=== PATIENT | male | born 1980 | race Caucasian/White ===

== ENCOUNTER 2017-02-07 15:44 | Emergency (ER) | payer MEDICAID ==
[2017-02-07 16:27] VITALS: BP 147/91; PULSE 71; RESP 20; TEMP 98.7; O2SAT 99
--- NOTE | 2017-02-07 17:07 | C.PDOC ---
History Of Present Illness 36-year-old male, presents to the emergency department with complaints of severe right flank pain in right-lower back, that started spontaneously a few hours ago. Pain is non-traumatic and constant in nature. Patient states he is unable to walk due to right leg pain that is worse w/ movement. pain is similar to an episode that patient had last year in August, after a fall four days prior to onset. Five years ago while patient was in [place], he states that he suffered sudden onset of transient paralysis from his waist downwards that lasted for approximately 3 months. Patient states he was under a lot of stress during the time and was unable to figure out what caused his episode of paralysis. A doctor informed patient that he "needs to pray to God," which patient did and later found recovery from his symptoms. Otherwise, patient denies head injury, LOC, urinary/bowel incontinence. Time Seen by Provider: 02/07/17 16:40 Chief Complaint (Nursing): Male Genitourinary History Per: Patient History/Exam Limitations: no limitations Onset/Duration Of Symptoms: Days, Waxing/Waning Severity: Moderate Past Medical History Reviewed: Historical Data, Nursing Documentation, Vital Signs Vital Signs: Last Vital Signs Temp 98.7 F 02/07/17 16:22 Pulse 71 02/07/17 16:22 Resp 20 02/07/17 16:22 BP 147/91 H 02/07/17 16:22 Pulse Ox 99 02/07/17 17:43 Surgical History: Appendectomy Family History: States: No Known Family Hx - Social History Hx Alcohol Use: No Hx Substance Use: No - Immunization History Hx Tetanus Toxoid Vaccination: No Hx Influenza Vaccination: No Hx Pneumococcal Vaccination: No Review Of Systems Constitutional: Negative for: Fever, Chills Cardiovascular: Negative for: Chest Pain, Palpitations Gastrointestinal: Negative for: Vomiting Musculoskeletal: Positive for: Back Pain, Leg Pain Skin: Negative for: Rash Neurological: Negative for: Weakness, Numbness Physical Exam - Physical Exam Appears: Non-toxic, No Acute Distress (moderate. moaning, writhing in pain) Skin: Warm, Dry, No Rash Eye(s): bilateral: Normal Inspection Neck: Normal ROM Chest: Symmetrical Cardiovascular: Rhythm Regular Respiratory: Normal Breath Sounds, No Accessory Muscle Use Extremity: Normal ROM, No Tenderness, Capillary Refill (<2 seconds), No Deformity, No Swelling ED Course And Treatment - Laboratory Results Result Diagrams: 02/07/17 17:06 02/07/17 17:06 Lab Interpretation: Normal O2 Sat by Pulse Oximetry: 99 Pulse Ox Interpretation: Normal - CT Scan/US MRI lumbar spine Other Rad Studies (CT/US): Read By Radiologist, Radiology Report Reviewed CT/US Interpretation: Accession No. : [id number]. Patient Name / ID : NICCI MARTÍNEZ / [id number]. Exam Date : 02/07/2017 17:45:09 ( Approved ). Study Comment : Sex / Age : M / 36Y. Creator : Nacho Crawley. Dictator : Nacho Crawley. Pouncer Machine : Associate Director Data & Analytics : Nacho Crawley. Approver2 : Report Date : 02/07/2017 18:18:17. My Comment : . PROCEDURE: MR LUMBAR SPINE WITHOUT CONTRAST. HISTORY: right sided back pain with radiation to leg. COMPARISON: Comparison is made to the previous CT study dated 09/05/2016. TECHNIQUE: Multiecho multiplanar sequences were performed through the lumbar spine without the use of intravenous contrast. FINDINGS: Normal lumbar lordosis. Vertebral body heights are preserved. Marrow signal unremarkable. Conus medullaris unremarkable at the level of T12. Paraspinal soft tissues are unremarkable. T12-L1: No disc herniation, spinal canal stenosis or neural foraminal narrowing. L1-2: No disc herniation, spinal canal stenosis or neural foraminal narrowing. L2-3: No disc herniation, spinal canal stenosis or neural foraminal narrowing. L3-4: No disc herniation, spinal canal stenosis or neural foraminal narrowing. L4-5: There is moderate disc desiccation. There is a small central and left paracentral disc bulging associated with annular tear and posterior ligament and facet joint hypertrophy which resulting in mild spinal stenosis. No evidence of significant neural foraminal narrowing. L5-S1: Moderate narrowing of the intervertebral disc is space. No disc herniation, spinal canal stenosis or neural foraminal narrowing. OTHER FINDINGS: None. IMPRESSION: Moderate degenerative disc changes at L4- L5. Small disc bulging at L4-L5 associated with posterior ligament and facet joint hypertrophy and also associated with annular tear which resulting in mild spinal stenosis. [id number] narrowing of the disc is space at L5-S1 Reevaluation Time: 19:00 Reassessment Condition: Improved Disposition Counseled Patient/Family Regarding: Studies Performed, Diagnosis, Need For Followup, Rx Given - Disposition Referrals: [facility] [Outside] Disposition: HOME/ ROUTINE Disposition Time: 19:06 Condition: IMPROVED Prescriptions: Cyclobenzaprine [Cyclobenzaprine HCl] 10 mg PO TID PRN #30 tab PRN Reason: Muscle Spasm Naproxen [Naprosyn] 500 mg PO BID PRN #30 tab PRN Reason: Pain, Moderate (4-7) Instructions: Acute Low Back Pain (ED), Lumbar Radiculopathy (ED) Forms: Work Excuse - Clinical Impression Clinical Impression: Lumbar radiculopathy, Low back pain - Scribe Statement The provider has reviewed the documentation as recorded by the Scribclarissa Mirza All medical record entries made by the Anabelibclarissa were at my direction and personally dictated by me. I have reviewed the chart and agree that the record accurately reflects my personal performance of the history, physical exam, medical decision making, and the department course for this patient. I have also personally directed, reviewed, and agree with the discharge instructions and disposition.
[2017-02-07 17:11] LABS: BASO # 0.1 K/uL (0.0-0.2); BASO % 0.9 % (0.0-2.0); EOS # 0.1 K/uL (0.0-0.7); HEMATOCRIT 48.2 % (35.0-51.0); LYMPH # 1.9 K/uL (1.0-4.3); LYMPH % 29.9 % (20.0-40.0); MEAN CELL VOLUME 83.7 fL (80.0-94.0); MEAN CORPUSCULAR HEMOGLOBIN 27.6 pg (27.0-31.0); MEAN CORPUSCULAR HGB CONC 32.9 g/dL (33.0-37.0); MEAN PLATELET VOLUME 10.1 fL (7.2-11.7); MONO # 0.3 K/uL (0.0-0.8); MONO % 4.5 % (0.0-10.0); RED CELL DISTRIBUTION WIDTH 13.2 % (11.5-14.5); WHITE BLOOD COUNT 6.5 K/uL (4.8-10.8)
[2017-02-07 17:21] LABS: CHLORIDE 100 mmol/L (98-107); POTASSIUM 3.8 mmol/L (3.6-5.2); SODIUM 137 mmol/L (132-148)
[2017-02-07 17:23] LABS: BILIRUBIN,TOTAL 0.7 mg/dL (0.2-1.3); GFR AFRICAN-AMERICAN > 60
[2017-02-07 17:24] LABS: ALB/GLOB RATIO 1.3 (1.0-2.1); ALKALINE PHOSPHATASE 52 U/L (38-126); ALT/SGPT 24 U/L (21-72); AST/SGOT 30 U/L (17-59); BLOOD UREA NITROGEN 16 mg/dL (9-20); CALCIUM 8.9 mg/dl (8.6-10.4); CARBON DIOXIDE 27 mmol/L (22-30); GLUCOSE,RANDOM 91 mg/dL (75-110); TOTAL PROTEIN 7.8 g/dL (6.3-8.3)
--- NOTE | 2017-02-07 18:19 | MRI ---
PROCEDURE: MR LUMBAR SPINE WITHOUT CONTRAST HISTORY: right sided back pain with radiation to leg COMPARISON: Comparison is made to the previous CT study dated 09/05/2016 TECHNIQUE: Multiecho multiplanar sequences were performed through the lumbar spine without the use of intravenous contrast. FINDINGS: Normal lumbar lordosis. Vertebral body heights are preserved. Marrow signal unremarkable. Conus medullaris unremarkable at the level of T12 Paraspinal soft tissues are unremarkable. T12-L1: No disc herniation, spinal canal stenosis or neural foraminal narrowing. L1-2: No disc herniation, spinal canal stenosis or neural foraminal narrowing. L2-3: No disc herniation, spinal canal stenosis or neural foraminal narrowing. L3-4: No disc herniation, spinal canal stenosis or neural foraminal narrowing. L4-5: There is moderate disc desiccation. There is a small central and left paracentral disc bulging associated with annular tear and posterior ligament and facet joint hypertrophy which resulting in mild spinal stenosis. No evidence of significant neural foraminal narrowing. L5-S1: Moderate narrowing of the intervertebral disc is space. No disc herniation, spinal canal stenosis or neural foraminal narrowing. OTHER FINDINGS: None. IMPRESSION: Moderate degenerative disc changes at L4-L5. Small disc bulging at L4-L5 associated with posterior ligament and facet joint hypertrophy and also associated with annular tear which resulting in mild spinal stenosis. [id number] narrowing of the disc is space at L5-S1
[2017-02-07 18:50] LABS: RBC URINE 3 /hpf (0-3); URINE BACTERIA RARE (<OCC); URINE BILIRUBIN NEGATIVE (NEGATIVE); URINE BLOOD NEGATIVE (NEGATIVE); URINE COLOR Yellow (YELLOW); URINE GLUCOSE (UA) NORMAL (Normal); URINE KETONE NEGATIVE (NEGATIVE); URINE LEUKOCYTE ESTERASE NEG Leu/uL (Negative); URINE PROTEIN NEGATIVE (NEGATIVE); URINE UROBILINOGEN NORMAL mg/dL (0.2-1.0); WBC URINE 1 /hpf (0-5)
== END 2017-02-07 19:48 | disposition home or self-care (01) ==
LOC: C.ER 15:44
DX: M54.16 Radiculopathy, lumbar region (principal); M54.5 Low back pain
CPT/HCPCS: 72148; 80053; 81001; 85025; 96374; 99285; J1885

== ENCOUNTER 2017-11-24 22:54 | Emergency (ER) | payer MEDICAID ==
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
[2017-11-25 00:47] VITALS: BP 110/70; PULSE 70; RESP 14; TEMP 97.6
[2017-11-25 05:24] VITALS: O2SAT 96
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
== END 2017-11-25 00:47 | disposition home or self-care (01) ==
LOC: C.ER 22:54
DX: S20.211A Contusion of right front wall of thorax, initial encounter (principal); V19.9XXA Pedal cyclist (driver) (passenger) injured in unspecified traffic accident, initial encounter; Y93.55 Activity, bike riding
CPT/HCPCS: 71101; 96372; 99284; J1885